=== PATIENT | male | born 1980 | race African-American/Black ===

== ENCOUNTER 2017-03-11 16:41 | Emergency (ER) | payer MEDICAID ==
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
--- NOTE | 2017-03-12 10:09 | Diagnostic Imaging Report ---
Left RIBS (2 views) HISTORY: Pain No acute bony abnormalities. No fractures. No acute pulmonary parenchymal or pleural abnormalities. IMPRESSION: No acute abnormalities
--- NOTE | 2017-03-12 10:09 | Diagnostic Imaging Report ---
Portable chest x-ray History: Pain, trauma Allowing for portable technique the heart size is normal. No focal pulmonary parenchymal processes. No hilar or mediastinal abnormalities. Impression: No acute abnormalities.
== END 2017-03-11 17:55 | disposition home or self-care (01) ==
LOC: ER 16:41
DX: S20.212A Contusion of left front wall of thorax, initial encounter (principal); J44.9 Chronic obstructive pulmonary disease, unspecified; J45.909 Unspecified asthma, uncomplicated; F17.200 Nicotine dependence, unspecified, uncomplicated; Y04.0XXA Assault by unarmed brawl or fight, initial encounter; Y93.89 Activity, other specified; Y92.89 Other specified places as the place of occurrence of the external cause; Y99.8 Other external cause status
CPT/HCPCS: 71010-TC; 71101-TC-LT; Z7502